=== PATIENT | male | born 1960 | race Caucasian/White ===

== ENCOUNTER 2025-03-07 06:15 | Day surgery (SDC) | payer OTHER, SELFPAY | END 2025-03-07 10:57 | disposition home or self-care (01) | LOC: GI 06:15 | PROVIDERS: ATTENDING PHYSICIAN Specialist; FAMILY PHYSICIAN Family Medicine | DX: K20.0 Eosinophilic esophagitis (principal); K31.7 Polyp of stomach and duodenum | CPT/HCPCS: 43239; 88305 ==

== ENCOUNTER → 2025-03-29 14:34 | Outpatient (REF) | payer OTHER, SELFPAY | LOC: HWLAB 14:34 | PROVIDERS: ATTENDING PHYSICIAN Family Medicine | DX: M25.521 Pain in right elbow (principal) | CPT/HCPCS: 73080 ==